=== PATIENT | female | born 1970 | race Two or more races ===

== ENCOUNTER 2018-08-03 16:50 | Emergency (ER) | payer BC, OTHER ==
[~2018-08-03] VITALS: Ht 149.9 cm; Wt 2.1 kg
[2018-08-03] MEDS ORDERED: HYDROcodone-ACET 10/325MG TAB PO ONE (17:15)
[2018-08-03 18:19] VITALS: BP 119/62
== END 2018-08-03 18:48 | disposition home or self-care (01) ==
LOC: EDBD 16:50 → ER 16:52
DX: S82.831A Other fracture of upper and lower end of right fibula, initial encounter for closed fracture (principal); Z88.6 Allergy status to analgesic agent; W01.0XXA Fall on same level from slipping, tripping and stumbling without subsequent striking against object, initial encounter; Y93.89 Activity, other specified; Y92.89 Other specified places as the place of occurrence of the external cause; Y99.8 Other external cause status
CPT/HCPCS: 29515; 73600